=== PATIENT | female | born 1960 | race Two or more races ===

== ENCOUNTER 2024-06-29 00:28 | Inpatient (IN) | payer OTHER ==
[2024-06-29 01:18] LABS: BASO % 0.2 % (0-2.0); EOS % 0.1 % (0-4.5); HEMATOCRIT 43.2 % (32.4-45.2); HEMOGLOBIN 14.2 GM/dL (10.7-15.3); LYMPH % 21.3 % (8-40); MCH 28.4 pg (25.7-33.7); MCHC 32.9 g/dl (32.0-36.0); MEAN CELL VOLUME 86.6 fl (80-96); MEAN PLT VOLUME 9.1 fl (7.5-11.1); MONO % 7.8 % (3.8-10.2); NEUT % 70.6 % (42.8-82.8); PLATELET COUNT 247 10^3/uL (134-434); RBC 4.99 M/mm3 (3.60-5.2); RDW 14.8 % (11.6-15.6); WHITE BLOOD COUNT 11.6 K/mm3 (4.0-10.0)
[2024-06-29] MEDS: LACTATED RINGERS SOLUTION 1000 ML INFUS.BAG IV ONE (01:33)
[2024-06-29] MEDS: METOCLOPRAMIDE HCL INJECTION 10 MG/2 ML VIAL IVPB ONE (01:33)
[2024-06-29 01:35] LABS: INR 1.03 (0.83-1.09); PROTHROMBIN TIME (PATIENT) 11.8 SEC (9.7-13.0)
[2024-06-29] MEDS ORDERED: METOCLOPRAMIDE HCL INJECTION 10 MG/2 ML VIAL ONE (01:36)
[2024-06-29 01:38] LABS: ACTIVATED PTT 28.7 SECONDS (25.2-36.5)
[2024-06-29 01:44] LABS: POTASSIUM 5.7 mmol/L (3.5-5.1)
[2024-06-29 01:47] LABS: ALBUMIN 4.1 g/dl (3.4-5.0); MAGNESIUM 2.5 mg/dL (1.8-2.4)
[2024-06-29 01:50] LABS: CREATININE 2.8 mg/dL (0.55-1.3)
[2024-06-29 01:51] LABS: BILIRUBIN,TOTAL 0.4 mg/dL (0.2-1); TOT PROT 7.8 g/dl (6.4-8.2)
[2024-06-29] MEDS ORDERED: ONDANSETRON *ODT* 4 MG TABLET ONE (03:35)
[2024-06-29] MEDS: ONDANSETRON *ODT* 4 MG TABLET SL ONE (03:35)
[2024-06-29 04:41] VITALS: BMI 38.0
[2024-06-29] MEDS: HEPARIN NA (PORCINE) 5,000 UNITS/ML 1ML VIAL SQ SCH (06:54)
[2024-06-29] MEDS: SODIUM CHLORIDE 1,000 ML IV SCH ×3 (07:36→18:20)
[2024-06-29 10:20] LABS: EPI CELLS 5 /uL (0-25.1); HYALINE CASTS 6 /uL (0-3.1); PH,URINE 5.5 (5.0-8.0); URINE APPEARANCE CLEAR; URINE BACTERIA 4257 /uL (0-1359); URINE BILIRUBIN NEGATIVE (NEGATIVE); URINE COLOR YELLOW; URINE GLUCOSE (UA) NEGATIVE (NEGATIVE); URINE KETONE 1+ (NEGATIVE); URINE LEUK ESTERASE 2+ (NEGATIVE); URINE NITRITE NEGATIVE (NEGATIVE); URINE PROTEIN 1+ (NEGATIVE); URINE RBC 30 /uL (0-23.9); URINE UROBILINOGEN 0.2 mg/dL (0.2-1.0); URINE WBC 952 /uL (0-25.8)
[2024-06-29] MEDS: CELECOXIB 200 MG CAPSULE PO SCH (10:20)
[2024-06-29] MEDS: ACETAMINOPHEN 500 MG TABLET (FP) PO SCH (10:20)
[2024-06-29] MEDS: CEFTRIAXONE 1 G/50 ML PREMIX 50 ML IVPB SCH (10:59)
[2024-06-29 11:45] LABS: HEMATOCRIT 40.7 % (32.4-45.2); HEMOGLOBIN 13.2 GM/dL (10.7-15.3); MCH 28.6 pg (25.7-33.7); MCHC 32.4 g/dl (32.0-36.0); MEAN CELL VOLUME 88.2 fl (80-96); MEAN PLT VOLUME 9.4 fl (7.5-11.1); PLATELET COUNT 199 10^3/uL (134-434); RBC 4.61 M/mm3 (3.60-5.2); RDW 14.9 % (11.6-15.6); WHITE BLOOD COUNT 6.9 K/mm3 (4.0-10.0)
[2024-06-29 12:07] LABS: POTASSIUM 4.8 mmol/L (3.5-5.1)
[2024-06-29 12:09] LABS: ALBUMIN 3.3 g/dl (3.4-5.0); CALCIUM 9.3 mg/dL (8.5-10.1)
[2024-06-29 12:10] LABS: BLOOD UREA NITROGEN 54.9 mg/dL (7-18); MAGNESIUM 2.4 mg/dL (1.8-2.4)
[2024-06-29 12:12] LABS: CHOLESTEROL 163 mg/dL (50-200)
[2024-06-29 12:13] LABS: CREATININE 2.1 mg/dL (0.55-1.3); LDL CHOLESTEROL (ONLY SJRH) 70 mg/dL (5-100)
[2024-06-29 12:14] LABS: BILIRUBIN,TOTAL 0.3 mg/dL (0.2-1); HDL CHOLESTEROL 72 mg/dL (40-60); TOT PROT 6.6 g/dl (6.4-8.2)
[2024-06-29] MEDS: SODIUM ZIRCONIUM CYCLOSILICATE (LOKELMA) 10 GM PACKET PO SCH (15:20)
[2024-06-29] MEDS ORDERED: METOCLOPRAMIDE HCL INJECTION 10 MG/2 ML VIAL IVPUSH PRN (15:41)
[2024-06-29 17:02] VITALS: RESP 18
[2024-06-30 06:35] VITALS: TEMP 97.7
[2024-06-30 09:13] LABS: BASO % 0.6 % (0-2.0); EOS % 0.7 % (0-4.5); HEMATOCRIT 38.1 % (32.4-45.2); HEMOGLOBIN 12.5 GM/dL (10.7-15.3); LYMPH % 38.2 % (8-40); MCH 28.8 pg (25.7-33.7); MCHC 32.8 g/dl (32.0-36.0); MEAN CELL VOLUME 87.6 fl (80-96); MEAN PLT VOLUME 9.3 fl (7.5-11.1); MONO % 5.3 % (3.8-10.2); NEUT % 55.2 % (42.8-82.8); PLATELET COUNT 212 10^3/uL (134-434); RBC 4.35 M/mm3 (3.60-5.2); RDW 14.8 % (11.6-15.6); WHITE BLOOD COUNT 5.9 K/mm3 (4.0-10.0)
[2024-06-30 09:44] LABS: POTASSIUM 4.7 mmol/L (3.5-5.1)
[2024-06-30 09:52] LABS: ALBUMIN 3.3 g/dl (3.4-5.0)
[2024-06-30 09:56] LABS: CALCIUM 9.5 mg/dL (8.5-10.1); MAGNESIUM 2.4 mg/dL (1.8-2.4)
[2024-06-30 10:00] LABS: CREATININE 1.3 mg/dL (0.55-1.3)
[2024-06-30 10:01] LABS: BILIRUBIN,TOTAL 0.3 mg/dL (0.2-1); TOT PROT 6.8 g/dl (6.4-8.2)
[2024-06-30 10:43] VITALS: BP 109/62; PULSE 70
== END 2024-06-30 12:24 | disposition home or self-care (01) | DRG 469 ==
LOC: JER 00:28 → JERBED 02:24 → J5S 04:32 → OBSVTOIN 10:52
PROVIDERS: ADMIT Internal Medicine; ATTEND Internal Medicine
DX: N17.9 Acute kidney failure, unspecified (principal); K85.90 Acute pancreatitis without necrosis or infection, unspecified; E87.5 Hyperkalemia; E86.0 Dehydration; E78.5 Hyperlipidemia, unspecified; E66.9 Obesity, unspecified; M17.12 Unilateral primary osteoarthritis, left knee; N39.0 Urinary tract infection, site not specified; I12.9 Hypertensive chronic kidney disease with stage 1 through stage 4 chronic kidney disease, or unspecified chronic kidney disease; N18.9 Chronic kidney disease, unspecified; Z68.38 Body mass index [BMI] 38.0-38.9, adult
CPT/HCPCS: 36415; 71045-TC-FY; 76775-TC; 80053; 80061; 81003; 82550; 83690; 83735; 84100; 84300; 84484; 85025; 85027; 85610; 85730; 93005; 93010; 99285-25; G0378; J1644; Q0162

== ENCOUNTER 2024-07-09 10:35 | Observation (INO) | payer OTHER ==
[2024-07-09] MEDS ORDERED: ACETAMINOPHEN INJECTION 100 ML ONE (11:20)
[2024-07-09] MEDS ORDERED: ONDANSETRON 4 MG/2 ML VIAL ONE (11:20)
[2024-07-09] MEDS ORDERED: FAMOTIDINE 20 MG/50 ML IVPB 20 MG/50 ML MG IVPB ONE (11:20)
[2024-07-09 12:23] LABS: PH,URINE 5.5 (5.0-8.0); URINE APPEARANCE TURBID; URINE BILIRUBIN NEGATIVE (NEGATIVE); URINE COLOR YELLOW; URINE GLUCOSE (UA) NEGATIVE (NEGATIVE); URINE KETONE TRACE (NEGATIVE); URINE LEUK ESTERASE 2+ (NEGATIVE); URINE NITRITE NEGATIVE (NEGATIVE); URINE PROTEIN 1+ (NEGATIVE)
[2024-07-09 12:48] LABS: URINE RBC 13 /uL (0-23.9); URINE WBC 15.2 /uL (0-25.8)
[2024-07-09 12:49] LABS: EPI CELLS 9.3 /uL (0-25.1); HYALINE CASTS 0.54 /uL (0-3.1); URINE BACTERIA 109.6 /uL (0-1359)
[2024-07-09] MEDS: ONDANSETRON 4 MG/2 ML VIAL IVPUSH ONE (13:03)
[2024-07-09] MEDS: SODIUM CHLORIDE 1,000 ML IV STA ×2 (13:03→18:55)
[2024-07-09] MEDS: ACETAMINOPHEN 1000 MG/100 ML BAG IVPB ONE (13:03)
[2024-07-09] MEDS: FAMOTIDINE 20 MG/50 ML IVPB 20 MG/50 ML MG IVPB ONE (13:03)
[2024-07-09 13:10] LABS: BASO % 0.4 % (0-2.0); EOS % 0.4 % (0-4.5); HEMATOCRIT 42.1 % (32.4-45.2); HEMOGLOBIN 13.8 GM/dL (10.7-15.3); LYMPH % 26.4 % (8-40); MCH 28.6 pg (25.7-33.7); MCHC 32.8 g/dl (32.0-36.0); MEAN CELL VOLUME 87.4 fl (80-96); MEAN PLT VOLUME 9.3 fl (7.5-11.1); MONO % 8.5 % (3.8-10.2); NEUT % 64.3 % (42.8-82.8); PLATELET COUNT 189 10^3/uL (134-434); RBC 4.82 M/mm3 (3.60-5.2); RDW 15.4 % (11.6-15.6); WHITE BLOOD COUNT 6.7 K/mm3 (4.0-10.0)
[2024-07-09 13:15] LABS: ALBUMIN 3.8 g/dl (3.4-5.0); CALCIUM 10.1 mg/dL (8.5-10.1)
[2024-07-09 13:16] LABS: BLOOD UREA NITROGEN 46.2 mg/dL (7-18)
[2024-07-09 13:19] LABS: CREATININE 1.6 mg/dL (0.55-1.3)
[2024-07-09 13:20] LABS: BILIRUBIN,TOTAL 0.4 mg/dL (0.2-1); TOT PROT 7.3 g/dl (6.4-8.2)
[2024-07-09] MEDS: LACTATED RINGERS SOLUTION 1000 ML INFUS.BAG IV ONE (13:37)
[2024-07-09] MEDS ORDERED: VANCOMYCIN 1 GM PREMIX (F) 1 GM/200 ML BAG ONE (15:03)
[2024-07-09] MEDS ORDERED: PIPERACILLIN/TAZOB 3.375 GM 3.375 GM/50 ML BAG IVPB ONE (15:13)
[2024-07-09] MEDS: PIPERACILLIN/TAZOB 3.375 GM 3.375 GM in DEXTROSE 5%-WATER - 50 ML IVPB ONE (15:27)
[2024-07-09] MEDS: VANCOMYCIN 1,000 MG in DEXTROSE 5%-WATER - 250 ML IVPB ONE (15:28)
[2024-07-09] MEDS: VANCOMYCIN 1 GM PREMIX (F) 1 GM/200 ML BAG IVPB ONE (15:40)
[2024-07-09] MEDS ORDERED: CEFTRIAXONE 1 G/50 ML PREMIX 50 ML IVPB ONE (18:02)
[2024-07-09] MEDS: CEFTRIAXONE 1 GM/50 ML PREMIX IVPB ONE (18:09)
[2024-07-09] MEDS: SODIUM CHLORIDE 1,000 ML IV SCH (18:09)
[2024-07-09 20:12] VITALS: RESP 18
[2024-07-09] MEDS: HEPARIN NA (PORCINE) 5,000 UNITS/ML 1ML VIAL SQ SCH (22:19)
[2024-07-10 02:00] VITALS: BMI 36.3
[2024-07-10] MEDS ORDERED: ONDANSETRON 4 MG/2 ML VIAL IVPUSH PRN (06:09)
[2024-07-10] MEDS: LACTATED RINGERS SOLUTION 1,000 ML/1,000 ML INFUS.BAG IV SCH ×2 (07:17→15:52)
[2024-07-10] MEDS: CEFTRIAXONE 1 G/50 ML PREMIX 50 ML IVPB SCH (09:40)
[2024-07-10] MEDS ORDERED: CEFTRIAXONE 1,000 MG in DEXTROSE 5%-WATER - 50 ML IVPB SCH (10:00)
[2024-07-10] MEDS: ACETAMINOPHEN 1000 MG/100 ML BAG IVPB PRN (10:21)
[2024-07-10 16:34] LABS: POTASSIUM 4.3 mmol/L (3.5-5.1)
[2024-07-10 16:35] LABS: CALCIUM 8.8 mg/dL (8.5-10.1)
[2024-07-10 16:36] LABS: BLOOD UREA NITROGEN 23.1 mg/dL (7-18)
[2024-07-10 16:39] LABS: CREATININE 1.1 mg/dL (0.55-1.3); PHOSPHOROUS 2.5 mg/dL (2.5-4.9)
[2024-07-10] MEDS: ROSUVASTATIN CA 10 MG TABLET PO SCH (21:18)
[2024-07-11 09:00] LABS: POTASSIUM 4.7 mmol/L (3.5-5.1)
[2024-07-11 09:01] LABS: BLOOD UREA NITROGEN 14.5 mg/dL (7-18); CALCIUM 8.6 mg/dL (8.5-10.1)
[2024-07-11 09:02] LABS: MAGNESIUM 1.9 mg/dL (1.8-2.4)
[2024-07-11 09:05] LABS: CREATININE 0.9 mg/dL (0.55-1.3); PHOSPHOROUS 2.9 mg/dL (2.5-4.9)
[2024-07-11 09:07] LABS: HEMOGLOBIN 11.3 GM/dL (10.7-15.3); MCH 28.8 pg (25.7-33.7); MCHC 32.3 g/dl (32.0-36.0); MEAN CELL VOLUME 88.9 fl (80-96); RBC 3.94 M/mm3 (3.60-5.2); RDW 14.6 % (11.6-15.6); WHITE BLOOD COUNT 3.3 K/mm3 (4.0-10.0)
[2024-07-11 14:02] VITALS: BP 92/59; PULSE 69; TEMP 98.2
== END 2024-07-11 15:26 | disposition home or self-care (01) ==
LOC: JER 10:35 → JERBED 13:40 → UNDOADMOB 13:40 → INTOOBSV 13:40 → J5S 21:01 → JERBED 21:01 → J5S 07-10 08:57 → JERBED 07-10 08:57
PROVIDERS: ADMIT Internal Medicine; ATTEND Internal Medicine
PROC: 3E033NZ Introduction of Analgesics, Hypnotics, Sedatives into Peripheral Vein, Percutaneous Approach (ICD-10-PCS; principal; 2024-07-10)
PROC: 3E03329 Introduction of Other Anti-infective into Peripheral Vein, Percutaneous Approach (ICD-10-PCS; 2024-07-10)
PROC: 3E0337Z Introduction of Electrolytic and Water Balance Substance into Peripheral Vein, Percutaneous Approach (ICD-10-PCS; 2024-07-10)
PROC: 3E023GC Introduction of Other Therapeutic Substance into Muscle, Percutaneous Approach (ICD-10-PCS; 2024-07-10)
PROC: 3E033GC Introduction of Other Therapeutic Substance into Peripheral Vein, Percutaneous Approach (ICD-10-PCS; 2024-07-10)
DX: N17.9 Acute kidney failure, unspecified (principal); R79.89 Other specified abnormal findings of blood chemistry; I10 Essential (primary) hypertension; E66.9 Obesity, unspecified
CPT/HCPCS: 0241U-QW; 36415; 74176-TC; 80048; 80053; 81003; 83605; 83690; 83735; 84100; 84484; 85025; 85027; 85730; 87086; 93005; 93010; 96361; 96365; 96367; 96372; 96375; 96376; 99285-25; G0378; J0131; J1644